=== PATIENT | male | born 1975 | race American Indian/Alaskan Native ===

== ENCOUNTER 2016-11-16 13:07 | Inpatient (IN) | payer OTHER ==
[2016-11-16 14:56] LABS: Basophils % (Auto) 0.5 % (0.0-1.8); Eosinophils % (Auto) 1.2 % (0.0-4.3); Hematocrit 42.5 % (35.5-45.6); Hemoglobin 13.6 gm/dl (11.8-15.2); Mean Corpuscular HGB Conc 32 % (32-34); Mean Corpuscular Hemoglobin 30 pg (28-32); Mean Corpuscular Volume 93 fl (84-94); Platelet Count 272 K/mm3 (140-440); Red Blood Count 4.57 M/mm3 (3.65-5.03); Red Cell Distribution Width 15.8 % (13.2-15.2); White Blood Count 10.1 K/mm3 (4.5-11.0)
[2016-11-16 15:18] LABS: Calcium 8.8 mg/dL (8.4-10.2); Chloride 104.1 mmol/L (98-107); Potassium 3.9 mmol/L (3.6-5.0)
[2016-11-16] MEDS ORDERED: CARDIZEM ONE (22:36)
[2016-11-16] MEDS ORDERED: CARDIZEM IV ONE (22:50)
[2016-11-16] MEDS ORDERED: ASPIRIN PO ONE (23:14)
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
[2016-11-16] MEDS: CARDIZEM/D5W 100MG/100ML 100 MG/100 ML BAG IV SCH (23:15)
[2016-11-17] MEDS ORDERED: TYLENOL #3 PO PRN (06:29)
--- NOTE | 2016-11-17 07:41 | Admit Criteria Form ---
Admission Criteria Documentation: ATRIAL FIBRILLATION Clinical Indications for Admission to Inpatient Care (Place 'X' for any and all applicable criteria): Admission indicated for ANY ONE of the following(1)(2)(3)(4)(5) : [ ]I. Myocardial ischemia [ ]II. Dyspnea or hypoxemia [ ]III. Hemodynamic instability [ ]IV. Heart failure (e.g., pulmonary edema) (7) [ ]V. New-onset (less than 48 hours) atrial fibrillation with high risk for causing complications secondary to comorbidities (eg, symptomatic heart failure ) [ ]. Altered mental status [ ]VII. Syncope [ ]VIII. Patient has implantable cardioverter defibrillator that has fired more than once within past 24hr or needs immediate adjustment of settings that cannot be done other than in inpatient setting. (8) [ ]IX. Suspected accessory pathway (e.g., Pjgxz-Hwarncfnd-Cffhr syndrome) on ECG [ ]X. Recent systemic thromboembolism (eg, stroke) [ ]XI. Medication toxicity (e.g., digitalis) causing arrhythmia(9) [X]XII. Underlying medical condition that necessitates inpatient care (e.g., thyrotoxicosis, pneumonia) (10) [X]XIII. Continuous ECG monitoring is required for condition causing arrhythmia (e.g., severe hyperkalemia, hypokalemia, acid-base disturbance).(11)(12)(13) [ ]XIV. Initiation of antiarrhythmic drug therapy is needed in patient at high risk of adverse effects as indicated by ANY ONE of the following: [ ]a) Significant structural heart disease (e.g., reduced ejection fraction, congenital heart disease, valvular heart disease) [ ]b) Prolonged QT interval [ ]c) Underlying sinus node or atrioventricular conduction disturbances [ ]d) Need for treatment with antiarrhythmic drugs that have significant proarrhythmic potential (e.g., dofetilide, sotalol, procainamide) [ ]e) Patient whose sinus rhythm has never been observed on ECG [ ]XV. Intolerable symptoms despite optimal outpatient treatment [ ]XVI. Elective or urgent cardioversion that cannot be performed on outpatient basis or during observation care. [A] (Use also Atrial Fibrillation: Observation Care ) as appropriate.(14) [ ]XVII.Contraindications and/or Inappropriate clinical situations for Observational Care in patients with Atrial Fibrillation, when ANY ONE of the following is required: [ ]a) Patient with High risk of cardiac embolism (e.g, patients with previous cardiac embolism, LVEF < 40%, age >75 and patients with prosthetic valve) 18 [ ]b) Patient with Moderate risk including DM patient, CAD and patient aged 65-75 18 [ ]c) Patient with any change in cardiac biomarker especially troponin should be managed as high risk in an inpatient setting 19 [ ]d) Physician judgement irrespective of ECG and other diagnostic findings 20 [ ]XVIII.General contraindications and/or Inappropriate clinical situations for Observational Care in patients with Atrial Fibrillation, when ANY ONE of the following is required: [ ]a) Prediction of prolongation of LOS based on ANY ONE of the following may be considered as a contraindication for observational care 2, 3, 4, 5, 6, 7, 8, 9, 10, 11 [ ]i) Age > 65 yrs. [ ]ii) Patient arriving by ambulance [ ]iii) Patient with high acuity [ ]iv) Patient requiring vital sign monitoring [ ]v) Patient on IV medication [ ]b) Systolic blood pressures 180mmHg 3,12 [ ]c) Patient with altered mental status including delirium and other alteration of consciousness3 [ ]d) Patient whose discharge disposition will be to a jail home or rehabilitation home should not be managed in Emergency Department Observation Unit. CMS rule requires 3 days hospital stay before such placement.3,13 [ ]e) Patient with failure to thrive due to broad array of etiologies 3,16,17 [ ]f) Inability to ambulate 3,14 Extended stay beyond goal length of stay may be needed for (1)(25)(26): [ ]a) Unstable comorbidities [ ]b) Persistently uncontrolled atrial fibrillation or other arrhythmias [ ]c) Acute thromboembolic event (e.g., stroke, limb ischemia) [ ]d) Need for inpatient attainment of full anticoagulation The original [employer] content created by [employer] has been revised. The portions of the content which have been revised are identified through the use of italic text or in bold, and [facility] [employer] has neither reviewed nor approved the modified material. All other unmodified content is copyright [employer]. Please see references footnoted in the original [employer] edition 2016 Admission Criteria Met: Yes
--- NOTE | 2016-11-17 09:03 | XRay Report ---
AP CHEST: HISTORY: Shortness of breath. FINDINGS: Cardiomegaly is stable since 02/06/15. There is decreased pulmonary venous congestion on today's exam although it is borderline. The left costophrenic angle is obscured which appears to represent chronic left pleural thickening. Otherwise, the lungs are clear. No pneumothorax. IMPRESSION: No acute process. Cardiomegaly. Chronic left pleural thickening.
[2016-11-17] MEDS ORDERED: LOPRESSOR PO SCH (10:00)
[2016-11-17] MEDS: DELTASONE PO SCH (11:45)
[2016-11-17] MEDS: BABY ASPIRIN PO SCH (11:45)
[2016-11-17] MEDS: LOPRESSOR PO SCH ×2 (11:47→22:31)
[2016-11-17] MEDS: NORVASC PO SCH (12:12)
[2016-11-17] MEDS: LONITEN PO SCH ×2 (12:12→22:30)
[2016-11-17] MEDS: CATAPRES PO SCH ×4 (12:12→22:39)
--- NOTE | 2016-11-17 13:08 | Progress Note ---
Assessment and Plan Assessment and plan: 1. afib with RVR h/o of no complaince with coumadin and ASA cardiology consulted Previous 2decho shows ef 55% and hypertrophic cardiomyopathy pt denies CP 2. hypertrophic cardiomyopathy cont BP control and follow up cardiology recommendations 3. DMII. Continue SSI if needed , carb controlled diet. diabetic counseling . 4. hypertension bp controlled with meds. History Interval history: 41-year-old male admitted with A. fib with RVR. Patient currently denies any chest pain or shortness of breath. Hospitalist Physical - Constitutional Vitals: Temp Pulse Resp BP Pulse Ox 98.3 F 69 17 138/76 97 11/17/16 09:20 11/17/16 12:09 11/17/16 12:09 11/17/16 12:09 11/17/16 12:09 General appearance: Present: no acute distress, well-nourished - EENT Eyes: Present: PERRL, EOM intact ENT: hearing intact, clear oral mucosa, dentition normal - Neck Neck: Present: supple, normal ROM - Respiratory Respiratory effort: normal Respiratory: bilateral: CTA - Cardiovascular Rhythm: regular Heart Sounds: Present: S1 & S2. Absent: gallop, rub - Extremities Extremities: no ischemia, No edema, Full ROM - Abdominal General gastrointestinal: soft, non-tender, non-distended, normal bowel sounds - Integumentary Integumentary: Present: clear, warm, dry - Neurologic Neurologic: CNII-XII intact, moves all extremities Results - Labs CBC & Chem 7: 11/16/16 14:42 11/16/16 14:42 Labs: Laboratory Last Values WBC 10.1 K/mm3 (4.5-11.0) 11/16/16 14:42 RBC 4.57 M/mm3 (3.65-5.03) 11/16/16 14:42 Hgb 13.6 gm/dl (11.8-15.2) 11/16/16 14:42 Hct 42.5 % (35.5-45.6) 11/16/16 14:42 MCV 93 fl (84-94) 11/16/16 14:42 MCH 30 pg (28-32) 11/16/16 14:42 MCHC 32 % (32-34) 11/16/16 14:42 RDW 15.8 % (13.2-15.2) H 11/16/16 14:42 Plt Count 272 K/mm3 (140-440) 11/16/16 14:42 Lymph % (Auto) 31.3 % (13.4-35.0) 11/16/16 14:42 Bryan % (Auto) 12.1 % (0.0-7.3) H 11/16/16 14:42 Eos % (Auto) 1.2 % (0.0-4.3) 11/16/16 14:42 Baso % (Auto) 0.5 % (0.0-1.8) 11/16/16 14:42 Lymph # 3.2 K/mm3 (1.2-5.4) 11/16/16 14:42 Bryan # 1.2 K/mm3 (0.0-0.8) H 11/16/16 14:42 Eos # 0.1 K/mm3 (0.0-0.4) 11/16/16 14:42 Baso # 0.1 K/mm3 (0.0-0.1) 11/16/16 14:42 Seg Neutrophils % 54.9 % (40.0-70.0) 11/16/16 14:42 Seg Neutrophils # 5.5 K/mm3 (1.8-7.7) 11/16/16 14:42 Sodium 146 mmol/L (137-145) H 11/16/16 14:42 Potassium 3.9 mmol/L (3.6-5.0) 11/16/16 14:42 Chloride 104.1 mmol/L (98-107) 11/16/16 14:42 Carbon Dioxide 25 mmol/L (22-30) 11/16/16 14:42 Anion Gap 21 mmol/L 11/16/16 14:42 BUN 26 mg/dL (9-20) H 11/16/16 14:42 Creatinine 2.6 mg/dL (0.8-1.5) H 11/16/16 14:42 Estimated GFR 33 ml/min 11/16/16 14:42 BUN/Creatinine Ratio 10.00 % 11/16/16 14:42 Glucose 66 mg/dL (75-100) L 11/16/16 14:42 Calcium 8.8 mg/dL (8.4-10.2) 11/16/16 14:42 Troponin T 0.024 ng/mL (0.00-0.029) 11/16/16 19:00 Triglycerides 109 mg/dL (2-149) 11/16/16 16:32 Cholesterol 145 mg/dL (50-199) 11/16/16 16:32 LDL Cholesterol Direct 73 mg/dL (50-130) 11/16/16 16:32 HDL Cholesterol 51 mg/dL (40-59) 11/16/16 16:32 Cholesterol/HDL Ratio 2.84 % 11/16/16 16:32
--- NOTE | 2016-11-17 16:37 | Consultation ---
History of Present Illness Consult date: 11/17/16 Consult reason: atrial fibrillation History of present illness: This is a 41yr old male who usually receives his outpatient medical and cardiac care at the [facility]. He was seen in this hospital in April 2014, and again September 2014. Cardiac workup with a thallium stress test in April 2014 was negative, echocardiogram done on both visits showed well-preserved left ventricle systolic function, ejection fraction 55%. The major finding on his echocardiograms is the presence of severe, concentric left ventricular hypertrophy with left ventricular wall thickness 3 cm. He was recommended for optimal blood pressure control. He presents to the hospital at this time with acute onset palpitations, and found in the emergency room with atrial fibrillation with rapid ventricular response. He denies chest pain, dizziness and diaphoresis. With medical therapy in the emergency room included intravenous diltiazem, the patient has reverted to a stable sinus rhythm, and now feels much better. He has a past history of paroxysmal atrial fibrillation but has been noncompliant with xarelto therapy. Medications and Allergies Allergies Allergy/AdvReac Type Severity Reaction Status Date / Time Iodinated Contrast Media - Allergy Unknown Verified 06/30/16 12:28 IV Dye Home Medications Medication Instructions Recorded Confirmed Last Taken Type Aspirin [Aspirin BABY CHEW TAB] 81 mg PO QDAY 02/06/15 02/06/15 Unknown History Clonidine HCl [Catapres] 0.3 mg PO TID 02/06/15 02/06/15 Unknown History Doxazosin Mesylate [Cardura] 2 mg PO QHS 02/06/15 02/06/15 Unknown History Lisinopril [Zestril TAB] 5 mg PO QDAY 02/06/15 02/06/15 Unknown History Minoxidil [Loniten] 2.5 mg PO BID 02/06/15 02/06/15 Unknown History Nitroglycerin [Nitrostat] 0.4 mg SL Q5M PRN 02/06/15 02/06/15 Unknown History Prednisone 20 mg PO DAILY 02/06/15 02/06/15 Unknown History amLODIPine [Norvasc] 10 mg PO DAILY 02/06/15 02/06/15 Unknown History Insulin NPH/Regular [NovoLIN 70/30] 10 unit SQ BIDDIAB #1 vial 02/09/15 Unknown Rx Metoprolol [Lopressor TAB] 75 mg PO BID #60 tablet 02/09/15 Unknown Rx Syring W-Ndl,Disp,Insul,0.5 ml 1 each BID #100 disp.syrin 02/09/15 Unknown Rx [Insulin Syringe] Acetaminophen/Codeine [Tylenol #3] 1 tab PO Q8H PRN #15 tablet 04/16/15 Unknown Rx methylPREDNISolone [Medrol Dose 4 mg PO Q8H #1 pack 04/16/15 Unknown Rx Edmund] predniSONE [Deltasone] 10 mg PO .TAPER #35 tab 06/30/16 Unknown Rx Active Meds: Active Medications Acetaminophen/Codeine Phosphate (Tylenol #3) 1 tab PO Q8H PRN PRN Reason: Pain, Moderate (4-6) Amlodipine Besylate (Norvasc) 10 mg PO DAILY [facility] Last Admin: 11/17/16 12:12 Dose: Not Given Aspirin (Baby Aspirin) 81 mg PO QDAY [facility] Last Admin: 11/17/16 11:45 Dose: 81 mg Clonidine HCl (Catapres) 0.3 mg PO TID [facility] Last Admin: 11/17/16 12:12 Dose: Not Given Doxazosin Mesylate (Cardura) 2 mg PO QHS [facility] Diltiazem HCl (Cardizem/D5w 100mg/100ml) 100 mg in 100 mls @ 5 mls/hr IV TITR [facility]; 5 MG/HR PRN Reason: Protocol Last Titration: 11/17/16 05:47 Dose: 5 mg/hr, 5 mls/hr Metoprolol Tartrate (Lopressor) 75 mg PO BID [facility] Last Admin: 11/17/16 11:47 Dose: 75 mg Minoxidil (Loniten) 2.5 mg PO BID [facility] Last Admin: 11/17/16 12:12 Dose: Not Given Prednisone (Deltasone) 10 mg PO DAILY [facility] Last Admin: 11/17/16 11:45 Dose: 10 mg Physical Examination Vital Signs Temp Pulse Resp BP Pulse Ox 98.5 F 123 H 20 149/93 99 11/16/16 13:31 11/16/16 13:31 11/16/16 13:31 11/16/16 13:31 11/16/16 13:31 General appearance: no acute distress HEENT: Positive: PERRL Neck: Positive: trachea midline Cardiac: Positive: Reg Rate and Rhythm Lungs: Positive: Normal Breath Sounds Neuro: Positive: Grossly Intact Extremities: Absent: edema Results 11/16/16 14:42 11/16/16 14:42 EKG interpretations - Telemetry EKG Rhythm: Atrial Fibrillation Assessment and Plan Paroxysmal atrial fibrillation reverted to a sinus rhythm Chronic renal failure Hx of Hypertrophic Cardiomyopathy echocardiogram done 2014 showed well-preserved left ventricle systolic function, ejection fraction 55%. The major finding on his echocardiograms is the presence of severe, concentric left ventricular hypertrophy with left ventricular wall thickness 3 cm. no ischemia on MPI 2013 Hypertension
--- NOTE | 2016-11-17 20:03 | Event Note ---
Date: 11/16/16 See H/p in reports A fib with RVR HTN uncontrolled IDDM
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
[2016-11-17] MEDS ORDERED: NON-FORMULARY (Doxazosin Mesylate [Cardura] 2 MG) PO SCH (22:00)
[2016-11-17] MEDS: CARDURA PO SCH (22:30)
[2016-11-17] MEDS: NOVOLOG SUB-Q SCH (22:33)
[2016-11-17] MEDS: CARDIZEM CD PO SCH (22:33)
[2016-11-18] MEDS: CARDIZEM/D5W 100MG/100ML 100 MG/100 ML BAG IV SCH (01:30)
[2016-11-18] MEDS: LONITEN PO SCH ×2 (09:15→22:31)
--- NOTE | 2016-11-18 09:35 | Progress Note ---
Assessment and Plan Paroxysmal atrial fibrillation reverted to a sinus rhythm. On cardizem and metoprolol for suppression noncompliant with xarelto Chronic renal failure Hx of Hypertrophic Cardiomyopathy echocardiogram done 2014 showed well-preserved left ventricle systolic function, ejection fraction 55%. The major finding on his echocardiograms is the presence of severe, concentric left ventricular hypertrophy with left ventricular wall thickness 3 cm. no ischemia on MPI 2014 Hypertension Recommendations: Restart xarelto for oral anticoagulation therapy for stroke prophylaxis. Echocardiogram for left ventricular function assessment. Subjective Date of service: 11/18/16 Interval history: Patient has no complaints. Remains in sinus rhythm on telemetry. Objective Vital Signs Temp Pulse Pulse Pulse Pulse Resp BP 11/18/16 05:33 97.6 F 64 20 11/18/16 01:53 98.3 F 73 20 11/17/16 22:31 73 144/83 11/17/16 22:30 73 144/83 11/17/16 22:00 70 11/17/16 21:34 11/17/16 20:00 98.2 F 75 20 11/17/16 16:46 98.0 F 16 11/17/16 15:52 98.6 F 20 11/17/16 14:28 11/17/16 13:16 98.6 F 72 20 11/17/16 12:09 69 17 11/17/16 11:47 75 146/85 11/17/16 11:30 73 21 11/17/16 11:00 67 15 11/17/16 10:30 85 20 11/17/16 09:50 99 H 20 11/17/16 09:35 100 H 16 BP Pulse Ox 11/18/16 05:33 120/66 99 11/18/16 01:53 133/64 96 11/17/16 22:31 11/17/16 22:30 11/17/16 22:00 11/17/16 21:34 96 11/17/16 20:00 144/83 96 11/17/16 16:46 132/83 99 11/17/16 15:52 144/86 98 11/17/16 14:28 98 11/17/16 13:16 144/86 99 11/17/16 12:09 138/76 97 11/17/16 11:47 11/17/16 11:30 131/65 97 11/17/16 11:00 113/61 95 11/17/16 10:30 115/56 94 11/17/16 09:50 127/76 97 11/17/16 09:35 140/82 99 - Physical Examination General: No Apparent Distress HEENT: Positive: PERRL Neck: Positive: trachea midline Cardiac: Positive: Reg Rate and Rhythm Neuro: Positive: Grossly Intact Extremities: Absent: edema
[2016-11-18] MEDS ORDERED: XARELTO PO SCH (10:00)
[2016-11-18] MEDS: BABY ASPIRIN PO SCH (10:01)
[2016-11-18] MEDS: NORVASC PO SCH (10:01)
[2016-11-18] MEDS: DELTASONE PO SCH (10:01)
[2016-11-18] MEDS: CARDIZEM CD PO SCH (10:02)
[2016-11-18] MEDS: LOPRESSOR PO SCH ×2 (10:02→22:31)
[2016-11-18] MEDS: CATAPRES PO SCH ×3 (10:03→22:29)
[2016-11-18] MEDS: NOVOLOG SUB-Q SCH ×4 (10:07→22:32)
--- NOTE | 2016-11-18 11:20 | Event Note ---
Date: 11/18/16 Initially needing ICU admission for cardizem drip but transferred to telemetry and stable - will sign off
--- NOTE | 2016-11-18 14:33 | Progress Note ---
Assessment and Plan Assessment and plan: 1. afib with RVR h/o of no complaince with coumadin and ASA restarted xarelto per cardiology Previous 2decho shows ef 55% and hypertrophic cardiomyopathy pt denies CP 2. hypertrophic cardiomyopathy cont BP control and follow up cardiology recommendations 3. DMII. Continue SSI if needed , carb controlled diet. diabetic counseling . 4. hypertension bp controlled with meds. History Interval history: 41-year-old male admitted with A. fib with RVR. Patient currently denies any chest pain or shortness of breath. Hospitalist Physical - Constitutional Vitals: Temp Pulse Resp BP Pulse Ox 98.0 F 70 18 144/76 98 11/18/16 09:54 11/18/16 10:03 11/18/16 09:54 11/18/16 10:03 11/18/16 09:54 General appearance: Present: no acute distress - EENT Eyes: Present: PERRL, EOM intact ENT: hearing intact, clear oral mucosa, dentition normal - Neck Neck: Present: supple, normal ROM - Respiratory Respiratory effort: normal Respiratory: bilateral: CTA - Cardiovascular Rhythm: regular Heart Sounds: Present: S1 & S2. Absent: gallop, rub - Extremities Extremities: no ischemia, No edema, Full ROM - Abdominal General gastrointestinal: soft, non-tender, non-distended, normal bowel sounds - Integumentary Integumentary: Present: clear, warm, dry - Neurologic Neurologic: CNII-XII intact, moves all extremities Results - Labs CBC & Chem 7: 11/16/16 14:42 11/16/16 14:42 Labs: Laboratory Last Values WBC 10.1 K/mm3 (4.5-11.0) 11/16/16 14:42 RBC 4.57 M/mm3 (3.65-5.03) 11/16/16 14:42 Hgb 13.6 gm/dl (11.8-15.2) 11/16/16 14:42 Hct 42.5 % (35.5-45.6) 11/16/16 14:42 MCV 93 fl (84-94) 11/16/16 14:42 MCH 30 pg (28-32) 11/16/16 14:42 MCHC 32 % (32-34) 11/16/16 14:42 RDW 15.8 % (13.2-15.2) H 11/16/16 14:42 Plt Count 272 K/mm3 (140-440) 11/16/16 14:42 Lymph % (Auto) 31.3 % (13.4-35.0) 11/16/16 14:42 Trigg % (Auto) 12.1 % (0.0-7.3) H 11/16/16 14:42 Eos % (Auto) 1.2 % (0.0-4.3) 11/16/16 14:42 Baso % (Auto) 0.5 % (0.0-1.8) 11/16/16 14:42 Lymph # 3.2 K/mm3 (1.2-5.4) 11/16/16 14:42 Trigg # 1.2 K/mm3 (0.0-0.8) H 11/16/16 14:42 Eos # 0.1 K/mm3 (0.0-0.4) 11/16/16 14:42 Baso # 0.1 K/mm3 (0.0-0.1) 11/16/16 14:42 Seg Neutrophils % 54.9 % (40.0-70.0) 11/16/16 14:42 Seg Neutrophils # 5.5 K/mm3 (1.8-7.7) 11/16/16 14:42 Sodium 146 mmol/L (137-145) H 11/16/16 14:42 Potassium 3.9 mmol/L (3.6-5.0) 11/16/16 14:42 Chloride 104.1 mmol/L (98-107) 11/16/16 14:42 Carbon Dioxide 25 mmol/L (22-30) 11/16/16 14:42 Anion Gap 21 mmol/L 11/16/16 14:42 BUN 26 mg/dL (9-20) H 11/16/16 14:42 Creatinine 2.6 mg/dL (0.8-1.5) H 11/16/16 14:42 Estimated GFR 33 ml/min 11/16/16 14:42 BUN/Creatinine Ratio 10.00 % 11/16/16 14:42 Glucose 66 mg/dL (75-100) L 11/16/16 14:42 POC Glucose 51 (70-105) L 11/18/16 12:16 Hemoglobin A1c 5.1 % (4-6) 11/18/16 05:23 Calcium 8.8 mg/dL (8.4-10.2) 11/16/16 14:42 Troponin T 0.024 ng/mL (0.00-0.029) 11/16/16 19:00 Triglycerides 109 mg/dL (2-149) 11/16/16 16:32 Cholesterol 145 mg/dL (50-199) 11/16/16 16:32 LDL Cholesterol Direct 73 mg/dL (50-130) 11/16/16 16:32 HDL Cholesterol 51 mg/dL (40-59) 11/16/16 16:32 Cholesterol/HDL Ratio 2.84 % 11/16/16 16:32
[2016-11-18] MEDS: XARELTO PO SCH (17:29)
[2016-11-18] MEDS: CARDURA PO SCH (22:31)
[2016-11-19 08:17] VITALS: BP 126/76
[2016-11-19] MEDS: CATAPRES PO SCH (08:43)
[2016-11-19] MEDS: NOVOLOG SUB-Q SCH (08:43)
[2016-11-19] MEDS: LOPRESSOR PO SCH (09:48)
[2016-11-19] MEDS: LONITEN PO SCH (09:48)
[2016-11-19] MEDS: BABY ASPIRIN PO SCH (09:48)
[2016-11-19] MEDS: XARELTO PO SCH (09:48)
[2016-11-19] MEDS: CARDIZEM CD PO SCH (09:49)
[2016-11-19] MEDS: NORVASC PO SCH (09:49)
[2016-11-19] MEDS: DELTASONE PO SCH (09:50)
--- NOTE | 2016-11-19 10:59 | Discharge Summary ---
Providers - Providers Date of Admission: 11/16/16 23:14 Date of discharge: 11/19/16 Attending physician: NICOLAS TRINH MD 11/17/16 00:24 Consult to Physician [CONS] Routine Consulting Provider: XANDER MAHMOOD Reason For Exam: CRITICAL CARE MANAGEMENT Place consult to:: DR. MAHMOOD Notified:: YES Time called:: 23:20 11/17/16 13:05 Consult to Physician [CONS] Routine Consulting Provider: JENN SCHRADER Reason For Exam: afib Place consult to:: Dr. Schrader Notified:: Laura CUMMINGS Was contact made?: Yes If yes, spoke with:: Priya Pantoja Time called:: 15:28 Primary care physician: [employer]WORK MANAGER Hospitalization Reason for admission: palpitation Condition: Stable Hospital course: Patient is a 41-year-old man with chronic hypertension, and paroxysmal atrial fibrillation presented to the ER with complaints of acute onset of palpitations and found to have atrial fibrillation with RVR in the ER. Patient has been noncompliant with Xarelto normally follows at [facility]. On admission Cardiac workup with a thallium stress test in April 2014 was negative, echocardiogram done on both visits showed well-preserved left ventricle systolic function, ejection fraction 55%. The major finding on his echocardiograms is the presence of severe, concentric left ventricular hypertrophy with left ventricular wall thickness 3 cm. He was recommended for optimal blood pressure control. Rhiannon was consulted to assist with medical management and they did recommend optimal hypertension control, continue Cardizem or BETA gema therapy, and oral anticoagulation therapy for stroke prophylaxis. An echocardiogram was done and to be followed by patient's of the cardiology clinic. Patient did reverted back to sinus rhythm prior to discharge symptoms did improve. We did start the patient on Xarelto also also had extensive discussion with the patient and risks factors associated with anticoagulation and need to be compliant with this medication. Counseling was also provided on diabetic management. Dietary counseling was also provided to the patient. Recommendation to follow with ophthalmology and podiatry as yearly was also discussed in detail with this patient. Discharge diagnosis 1. afib with RVR 2. hypertrophic cardiomyopathy 3. DMII. 4. hypertension Disposition: DISCHARGED TO HOME OR SELFCARE Time spent for discharge: 35 mins Core Measure Documentation - Palliative Care Palliative Care/ Comfort Measures: Not Applicable - Core Measures Any of the following diagnoses?: none - VTE Discharge Requirements Deep Vein Thrombosis/Pulmonary Embolism Present on Admission: No Exam - Physical Exam Narrative exam: VITAL SIGNS: Reviewed. GENERAL: The patient appeared well nourished and normally developed. Vital signs as documented. HEAD: No signs of head trauma. EYES: Pupils are equal. Extraocular motions intact. EARS: Hearing grossly intact. MOUTH: Oropharynx is normal. NECK: No adenopathy, no JVD. CHEST: Chest with clear breath sounds bilaterally. No wheezes, rales, or rhonchi. CARDIAC: Regular rate and rhythm. S1 and S2, without murmurs, gallops, or rubs. VASCULAR: No Edema. Peripheral pulses normal and equal in all extremities. ABDOMEN: Soft, without detectable tenderness. No sign of distention. No rebound or guarding, and no masses palpated. Bowel Sounds normal. MUSCULOSKELETAL: Good range of motion of all major joints. Extremities without clubbing, cyanosis or edema. NEUROLOGIC EXAM: Alert and oriented x 3. No focal sensory or strength deficits. Speech normal. Follows commands. PSYCHIATRIC: Mood normal. SKIN: No rash or lesions. - Constitutional Vitals: Temp Pulse Resp BP Pulse Ox 97.7 F 70 18 126/76 98 11/19/16 08:15 11/19/16 08:48 11/19/16 08:48 11/19/16 08:15 11/19/16 08:15 Plan Activity: advance as tolerated Diet: low fat, diabetic Special Instructions: record daily BP diary, record blood sugar diary Additional Instructions: Follow at [place] for cardiology clinic Follow up with: PRIMARY CAREMD [Primary Care Provider] - 3-5 Days Prescriptions: cloNIDine [Catapres] 0.3 mg PO TID #90 tablet Diltiazem Cd [Cardizem CD] 120 mg PO QDAY #30 capsule Rivaroxaban [Xarelto] 20 mg PO QDAY #30 tablet
--- NOTE | 2016-11-19 12:55 | Progress Note ---
Assessment and Plan Paroxysmal atrial fibrillation reverted to a sinus rhythm. On cardizem and metoprolol for suppression noncompliant with xarelto Chronic renal failure Hx of Hypertrophic Cardiomyopathy echocardiogram done 2014 showed well-preserved left ventricle systolic function, ejection fraction 50-55%. There is also moderate to severe, concentric left ventricular hypertrophy. no ischemia on MPI 2013 Hypertension Recommendations: Continue xarelto for oral anticoagulation therapy for stroke prophylaxis. Continue current management for suppression of paroxysmal atrial fibrillation. Stable cardiac willams for discharge home. F/U with primary retail and restaurant at [place] in 1 week. Subjective Date of service: 11/19/16 Interval history: Patient has no complaints. Remains in sinus rhythm on telemetry. Objective Vital Signs Temp Pulse Pulse Pulse Pulse Pulse Resp 11/19/16 08:48 70 70 18 11/19/16 08:15 97.7 F 62 16 11/19/16 08:02 11/19/16 05:34 98.3 F 61 20 11/19/16 00:10 97.9 F 62 20 11/18/16 21:10 98.4 F 66 20 11/18/16 20:33 11/18/16 19:57 69 11/18/16 18:19 69 18 11/18/16 17:29 69 BP BP BP Pulse Ox 11/19/16 08:48 11/19/16 08:15 126/76 98 11/19/16 08:02 96 11/19/16 05:34 126/65 99 11/19/16 00:10 122/71 98 11/18/16 21:10 117/68 96 11/18/16 20:33 97 11/18/16 19:57 11/18/16 18:19 117/65 97 11/18/16 17:29 119/68 - Physical Examination General: No Apparent Distress HEENT: Positive: PERRL Neck: Positive: trachea midline Cardiac: Positive: Reg Rate and Rhythm Lungs: Positive: Decreased Breath Sounds Neuro: Positive: Grossly Intact Extremities: Absent: edema
== END 2016-11-19 13:30 | disposition home or self-care (01) | DRG 309 ==
LOC: ED 13:07 → CC1 23:14 → 4A 11-17 01:32
PROVIDERS: ADMIT Internal Medicine; ATTEND Internal Medicine
DX: I48.0 Paroxysmal atrial fibrillation (principal); I13.0 Hypertensive heart and chronic kidney disease with heart failure and stage 1 through stage 4 chronic kidney disease, or unspecified chronic kidney disease; I42.2 Other hypertrophic cardiomyopathy; N18.3 Chronic kidney disease, stage 3 (moderate); I25.2 Old myocardial infarction; I50.9 Heart failure, unspecified; Z91.041 Radiographic dye allergy status; Z86.73 Personal history of transient ischemic attack (TIA), and cerebral infarction without residual deficits; M10.9 Gout, unspecified; Z90.81 Acquired absence of spleen; Z91.19 Patient's noncompliance with other medical treatment and regimen; E11.22 Type 2 diabetes mellitus with diabetic chronic kidney disease; Z71.89 Other specified counseling
CPT/HCPCS: 36415; 71010; 80048; 80061; 82962; 83036; 84484; 85025; 93005; 93010; 93306; J7512